=== PATIENT | female | born 1970 | race Two or more races ===

== ENCOUNTER 2019-11-03 19:03 | Emergency (ER) | payer MEDICAID ==
[~2019-11-03] VITALS: Ht 162.6 cm; Wt 63.5 kg
[2019-11-03 19:15] VITALS: BP 112/58
--- NOTE | 2019-11-03 19:15 | NUR ---
ED Nurse Note: Pt walked into ED from home with brother for c/o n/v/d and abdominal pain x 3 weeks. Pt also reports 20 pound weight loss in the last three weeks. She notes she cannot keep anything down orally. Pt is aaox4, no cardiac or respiratory distress noted. IV line established, blood drawn by RN. Will continue to monitor.
[2019-11-03] MEDS ORDERED: Omnipaque-300 100ml vial INJ PRN (19:30)
[2019-11-03] MEDS ORDERED: Dicyclomine HCl 10mg/5ml oral soln ORAL ONE (19:30)
[2019-11-03 20:00] LABS: ANION GAP 11 mmol/L (5-15); BLOOD UREA NITROGEN 15 mg/dL (7-18); CALCIUM 9.1 MG/DL (8.5-10.1); CARBON DIOXIDE 26 MMOL/L (21-32); CHLORIDE 108 MMOL/L (98-107); CREATININE 0.3 MG/DL (0.55-1.30); POTASSIUM 3.2 MMOL/L (3.5-5.1); SODIUM 145 MMOL/L (136-145)
[2019-11-03 20:04] LABS: ALANINE AMINOTRANSFERASE 54 U/L (12-78); ALBUMIN 3.1 G/DL (3.4-5.0); ALBUMIN/GLOBULIN RATIO 0.8 (1.0-2.7); ALKALINE PHOSPHATASE 106 U/L (46-116); ASPARTATE AMINO TRANSFERASE 46 U/L (15-37); BILIRUBIN,TOTAL 0.4 MG/DL (0.2-1.0); CREATINE KINASE 37 U/L (26-308)
[2019-11-03 20:11] LABS: APPEARANCE,URINE CLEAR; BILIRUBIN, URINE NEGATIVE (NEGATIVE); GLUCOSE, URINE (UA) NEGATIVE (NEGATIVE); KETONES,URINE NEGATIVE (NEGATIVE); LEUKOCYTE ESTERASE ,URINE NEGATIVE (NEGATIVE); NITRITE,URINE NEGATIVE (NEGATIVE); PH,URINE 5 (4.5-8.0); PROTEIN,URINE NEGATIVE (NEGATIVE); UROBILINOGEN,URINE NORMAL MG/DL (0.0-1.0)
[2019-11-03 20:12] LABS: BASOPHILS % (AUTO) 2.1 % (0.0-2.0); EOSINOPHILS % (AUTO) 2.8 % (0.0-3.0); HEMATOCRIT 35.1 % (37.0-47.0); HEMOGLOBIN 11.6 G/DL (12.0-16.0); LYMPHOCYTES % (AUTO) 40.8 % (20.0-45.0); MEAN CORPUSCULAR VOLUME 86 FL (80-99); MONOCYTES % (AUTO) 11.9 % (1.0-10.0); NEUTROPHILS % (AUTO) 42.4 % (45.0-75.0); PLATELET COUNT 159 K/UL (150-450); RED BLOOD COUNT 4.09 M/UL (4.20-5.40); RED CELL DISTRIBUTION WIDTH 12.8 % (11.6-14.8); WHITE BLOOD COUNT 5.6 K/UL (4.8-10.8)
[2019-11-03 20:13] LABS: COLOR,URINE YELLOW
--- NOTE | 2019-11-03 20:29 | Emergency Room Report ---
History of Present Illness General Chief Complaint: Abdominal Pain Source: Patient Present Illness HPI 49-year-old female with history of prediabetes and no other past medical history here with brother complaining 2 weeks of intermittent nonbloody diarrhea , 1 week of diffuse abdominal pain, flatulence, and few bouts of nonbloody emesis. Reports that the diarrhea and vomiting starts after eating. Complains of fever and chills however patient is afebrile. Denies any recent travel, URI symptoms. Denies urinary frequency and urgency. Reports her last menstrual period was 3 months ago. Denies at this time. Has not taken medication for symptom relief. Denies alcohol intake, tobacco smoke, drug use. Denies headache and dizziness, chest pain, shortness of breath, palpitation, no other associated symptoms.Patient reports that she eats a lot of spicy food, tacos and street food. Allergies: Coded Allergies: No Known Allergies (Unverified , 11/03/19) Patient History Past Medical History: see triage record Past Surgical History: none Pertinent Family History: none Last Menstrual Period: menopause Now: No Immunizations: UTD Reviewed Nursing Documentation: PMH: Agreed; PSxH: Agreed Nursing Documentation-PMH Past Medical History: No History, Except For Hx Diabetes: Yes - PRE DM Review of Systems All Other Systems: negative except mentioned in HPI Physical Exam Vital Signs Date Time Temp Pulse Resp B/P (MAP) Pulse Ox O2 Delivery O2 Flow Rate FiO2 11/03/19 19:10 97.9 99 14 112/58 (76) 98 Room Air Sp02 EP Interpretation: reviewed, normal General Appearance: no apparent distress, alert, GCS 15, non-toxic Head: normocephalic, atraumatic Eyes: bilateral eye normal inspection, bilateral eye PERRL ENT: hearing grossly normal, normal pharynx, no angioedema, normal voice Neck: full range of motion, supple, thyroid normal, no meningismus, supple/symm /no masses Respiratory: chest non-tender, lungs clear, normal breath sounds, no rhonchi, no respiratory distress, no retraction, no accessory muscle use, no wheezing, speaking full sentences Cardiovascular #1: regular rate, rhythm, no edema, no murmur, normal capillary refill Gastrointestinal: soft, no organomegaly, no peritonitis, no bruit, non- distended, no hernia, no pulsatile mass, guarding - Left upper and lower quadrant Rectal: deferred Genitourinary: no CVA tenderness Musculoskeletal: back normal, no calf tenderness, pelvis stable Neurologic: alert, motor strength/tone normal, oriented x3, sensory intact, responsive, speech normal Psychiatric: judgement/insight normal, memory normal, mood/affect normal, no suicidal/homicidal ideation Skin: no rash, palpation normal, normal color, warm/dry, normal turgor Lymphatic: no adenopathy Medical Decision Making PA Attestation All my diagnosis and treatment plans were reviewed ad discussed with my supervising physician Dr. Dixon Diagnostic Impression: Primary Impression: Gastritis Additional Impressions: Acute diarrhea Ovarian cyst Cholelithiasis Renal stone Pulmonary nodule ER Course 49-year-old female with history of prediabetes and no other past medical history here with brother complaining 2 weeks of intermittent nonbloody diarrhea , 1 week of diffuse abdominal pain, flatulence, and few bouts of nonbloody emesis. Reports that the diarrhea and vomiting starts after eating. Complains of fever and chills however patient is afebrile. Denies any recent travel, URI symptoms. Denies urinary frequency and urgency. Reports her last menstrual period was 3 months ago. Denies at this time. Has not taken medication for symptom relief. Denies alcohol intake, tobacco smoke, drug use. Denies headache and dizziness, chest pain, shortness of breath, palpitation, no other associated symptoms. Patient reports that she eats a lot of spicy food , tacos and street food. Ddx considered but are not limited to: appendicitis, cholecystis, gastritis, gastroenteritis, UTI, pyelonephritis, SBO, diverticulitis, influenza with GI manifestation, NE, complication with ,pancreatitis, ruptured ovarian cyst Vital signs: are WNL, pt. is afebrile H&PE are most consistent with: gastritis, diarrhea , ovarian cyst, cholelithiasis without cholecystitis, renal stone, pulmonary nodule ORDERS: abdominal CT, abdominal pain set, EKG, chest x-ray, omeprazole, Zofran, dyclonine, Tylenol ED INTERVENTIONS: NS bolus, Pepcid, dicyclomine, Zofran DISCHARGE: At this time pt. is stable for d/c to home. Will provide printed patient care instructions, and any necessary prescriptions. Care plan and follow up instructions have been discussed with the patient prior to discharge. Take medication as directed, keep a brat diet, increase oral hydration especially electrolyte water, have primary doctor test you for H. pylori urease , stool culture, ova and parasite, also possible leg man referral needed to rule out gastric ulcer. If worsening symptoms return to the emergency room also follow-up with your primary care doctor regarding pulmonary nodule, renal stone and ovarian cyst, possible referral to [facility]. You may be going through menopause. EKG Diagnostic Results Rate: normal Rhythm: NSR ST Segments: no acute changes Other Impression No acute ST changes Chest X-Ray Diagnostic Results Chest X-Ray Diagnostic Results : Chest X-Ray Ordered: Yes # of Views/Limited/Complete: 1 View Indication: Other EP Interpretation: Yes PA Xray: Interpretation reviewed, by supervising MD, and agrees with findings. Interpretation: no consolidation, no effusion, no pneumothorax Impression: No acute disease Electronically Signed by: William Guillory PA-C CT/MRI/US Diagnostic Results CT/MRI/US Diagnostic Results : Imaging Test Ordered: CT abdomen pelvis with contrast Impression CT ABDOMEN & PELVIS With Contrast: Pulmonary nodule within the left lower lobe measuring up to [address] evidence of acute cholecystitis. Liver, spleen, pancreas and adrenal glands are unremarkable. Nonobstructing calculus within the left kidney. Otherwise the kidneys, ureters and urinary bladder unremarkable. Uterus is unremarkable. Left ovarian cyst measuring up to 3.5 cm. Appendix is unremarkable. Bowel is unremarkable. No acute osseous abnormality. Last Vital Signs Date Time Temp Pulse Resp B/P (MAP) Pulse Ox O2 Delivery O2 Flow Rate FiO2 11/03/19 19:15 99 14 Room Air 11/03/19 19:15 97.9 112/58 98 Status: improved Disposition: HOME, SELF-CARE Condition: Stable Scripts Acetaminophen* (TYLENOL EXTRA STRENGTH*) 500 Mg Tablet 500 MG ORAL Q8H PRN for Prn Headache/Temp > 101, #30 TAB 0 Refills Prov: William Mcdaniel 11/03/19 Omeprazole (OMEPRAZOLE) 20 Mg Tablet. 20 MG ORAL DAILY, #30 TAB Prov: William Mcdaniel 11/03/19 Ondansetron (Zofran) 4 Mg Tablet 4 MG ORAL Q6H PRN for Nausea & Vomiting, #14 TAB Prov: William Mcdaniel 11/03/19 Dicyclomine Hcl* (DICYCLOMINE HCL*) 10 Mg Capsule 10 MG ORAL QID, #20 CAP Prov: William Mcdaniel 11/03/19 Patient Instructions: Gastritis, Adult Additional Instructions: Follow-up with your primary doctor for testing for H. pylori and, as well as stool culture and ova and parasite for further evaluation of possible infectious gastroenteritis. If worsening symptoms return to the emergency room.Take medication as directed, keep a brat diet, increase oral hydration especially electrolyte water, have primary doctor test you for H. pylori urease , stool culture, ova and parasite, also possible leg man referral needed to rule out gastric ulcer. If worsening symptoms return to the emergency room.also follow-up with your primary care doctor regarding pulmonary nodule, renal stone and ovarian cyst, possible referral to [facility]. You may be going through menopause. William Mcdaniel Nov 03, 2019 20:29
[2019-11-03] MEDS ORDERED: DICYCLOMINE HCL10 MG ORAL (20:46)
[2019-11-03] MEDS ORDERED: TYLENOL EXTRA500 MG ORAL (20:46)
[2019-11-03] MEDS ORDERED: ZOFRAN4 M1 ORAL (20:46)
[2019-11-03] MEDS ORDERED: OMEPRAZOLE20 M3 ORAL (20:46)
--- NOTE | 2019-11-03 20:56 | Diagnostic Imaging Report ---
Clinical Indication: Abdominal pain for one week, 2 weeks intermittent nonbloody diarrhea, occasional emesis Technique: No oral contrast utilized, per emergency room physician request IV administration nonionic contrast. Venous phase spiral acquisition obtained through the abdomen and pelvis. Multiplanar reconstructions were generated. Total dose length product 322 mGycm. CTDIvol(s) 6 mGy. Dose reduction achieved using automated exposure control Comparison: none Findings: The appendix is normal. No evidence of colonic diverticulosis or diverticulitis. No small bowel distention. No free or loculated intraperitoneal gas or fluid is evident. The distal esophagus, stomach, duodenum are unremarkable. The gallbladder contains numerous gallstones. No pericholecystic fluid or inflammation demonstrated. There is no biliary ductal dilatation. The liver, pancreas, spleen, adrenals are unremarkable. The left kidney demonstrates a 4 mm lower pole calyceal calculus. No ureteral calculi, hydronephrosis, or hydroureter demonstrated.. Right kidney demonstrates subcentimeter low-attenuation lesions which are too small to characterize, otherwise unremarkable. The uterus demonstrates prominent left paraovarian veins and a prominent left ovarian vein. There is a 3.4 cm cyst in the left ovary. Included lung bases are clear except for a 4 mm nodule in the left lower lobe, image 4 of series 6. The bones demonstrate degenerative spondylosis changes. Impression: No definite acute abnormality 4 mm left lower lobe pulmonary nodule. If there is no significant smoking history, no further follow-up necessary. Recommend 6-12 months follow-up CT scan if there is significant smoking history. Prominent left paraovarian veins, could indicate chronic ovarian venous insufficiency which can be a cause of pelvic congestion syndrome Left ovarian 3.4 cm cyst is almost certainly benign Nonobstructive left lower pole renal calyceal calculus Subcentimeter low-attenuation right renal lesions, too small to characterize, most likely benign simple cysts. No further follow-up necessary This essentially agrees with the preliminary interpretation provided overnight by [employer] teleradiology service. The CT scanner at [facility] is accredited by the [employer] and the scans are performed using protocols designed to limit radiation exposure to as low as reasonably achievable to attain images of sufficient resolution adequate for diagnostic evaluation.
[2019-11-03 21:15] VITALS: BP 115/75
--- NOTE | 2019-11-03 21:15 | NUR ---
ER DISCHARGE NOTE: Patient is cleared to be discharged per ERMD, pt is aox4, on room air, with stable vital signs. pt was given dc and prescription instructions, pt was able to verbalize understanding, pt id band and iv site removed without complications. pt is able to ambulate with steady gait. pt took all belongings.
--- NOTE | 2019-11-04 13:17 | Diagnostic Imaging Report ---
Indication: Chest pain Technique: One view of the chest Comparison: none Findings: Lungs and pleural spaces are clear. Heart size is normal. Impression: No acute process
== END 2019-11-03 21:15 | disposition home or self-care (01) ==
LOC: EDBD 19:25 → EMR 19:25
DX: K29.70 Gastritis, unspecified, without bleeding (principal); R19.7 Diarrhea, unspecified; N83.202 Unspecified ovarian cyst, left side; K80.20 Calculus of gallbladder without cholecystitis without obstruction; N20.0 Calculus of kidney; R91.1 Solitary pulmonary nodule; R73.03 Prediabetes
CPT/HCPCS: 36415; 71045; 74177; 80053; 81003; 81025; 82550; 83690; 84484; 85025; 85610; 85730; 93005; 96361; 96374; J2405; J7030; Q9967; Z7502; 99284; J8499